=== PATIENT | female | born 1945 | race Two or more races ===

== ENCOUNTER 2017-10-13 10:29 | Emergency (ER) | payer OTHER ==
[~2017-10-13] VITALS: Ht 167.6 cm; Wt 108.9 kg
[2017-10-13] MEDS ORDERED: NORVASC10 MG (10:42)
[2017-10-13] MEDS ORDERED: COZAAR100 MG (10:42)
[2017-10-13] MEDS ORDERED: HYDRALAZINE HCL25 MG (10:43)
[2017-10-13] MEDS ORDERED: CARDURA XL4 MG (10:43)
== END 2017-10-13 12:32 | disposition home or self-care (01) ==
LOC: ER 10:29
DX: M62.830 Muscle spasm of back (principal); M54.5 Low back pain

== ENCOUNTER → 2021-07-27 | Emergency (ER) | payer OTHER ==
[~2021-07-27] VITALS: Ht 165.1 cm; Wt 127.0 kg
[~2021-07-27] MED LIST: CARDURA XL4 MG; COZAAR100 MG; HYDRALAZINE HCL25 MG; NORVASC10 MG
== END | disposition home or self-care (01) ==
LOC: ER 19:53
DX: S43.085A Other dislocation of left shoulder joint, initial encounter (principal); W18.39XA Other fall on same level, initial encounter; Y93.9 Activity, unspecified; Y92.018 Other place in single-family (private) house as the place of occurrence of the external cause; Y99.9 Unspecified external cause status

== ENCOUNTER 2023-07-05 14:01 | Emergency (ER) | payer OTHER ==
[~2023-07-05] VITALS: Ht 165.1 cm; Wt 113.9 kg
[2023-07-05] MEDS ORDERED: TOPROL XL200 MG (15:02)
[2023-07-05] MEDS ORDERED: TRAMADOL HCL50 MG (15:03)
[2023-07-05] MEDS ORDERED: PANTOPRAZOLE SODIUM 40 MG/VIAL VIAL IV PUSH ONE (16:30)
[2023-07-05 16:48] LABS: HEMATOCRIT 42.4 % (36.0-45.00); HEMOGLOBIN 13.8 g/dL (12.0-15.00); MEAN CELL VOLUME 86.1 fL (80.00-100.00); MEAN CORPUSCULAR HEMOGLOBIN 28.1 pg (27.00-32.0); MEAN CORPUSCULAR HGB CONC 32.6 g/dl (32.0-36.0); PLATELET COUNT 179 K/uL (150-450); RED BLOOD COUNT 4.93 M/uL (4.00-6.00); RED CELL DISTRIBUTION WIDTH 15.2 % (11.5-14.5)
[2023-07-05 17:16] LABS: ALBUMIN 3.5 gm/dL (3.4-5.0); BILIRUBIN TOTAL 1.04 mg/dL (0.3-1.2); CALCIUM 9.2 mg/dL (8.5-10.1); GFR 53.62; GLOBULINA 3.9 G/DL (2.4-3.5); POTASSIUM 3.22 mEq/L (3.5-5.1); TOTAL PROTEIN 7.4 gm/dL (6.4-8.2)
[2023-07-05 18:30] LABS: URINE APPEARANCE Turbid; URINE BILIRRUBIN Small (NEGATIVE); URINE BLOOD Large; URINE COLOR Dark Yellow; URINE LEUKOCYTE Large; URINE NITRATE Negative
[2023-07-05 18:40] LABS: URINE GLUCOSE 100 MG/DL (NEGATIVE); URINE PROTEIN 100 (NEGATIVE)
[2023-07-05 18:41] LABS: URINE BACTERIA 4413.6 uL (0.0-1933); URINE EPITHELIAL CELLS 72.3 uL (0.0-38.8); URINE RBC 36.2 uL (0.0-20.8); URINE WBC 1597.5 uL (0.0-23.2)
[2023-07-05] MEDS ORDERED: HYOSCYAMINE SULFATE 0.125 MG TAB.SUBL SL ONE (23:45)
[2023-07-05] MEDS ORDERED: PIPERACILLIN/TAZOBACTAM SODIUM 3.375 GM VIAL IV ONE (23:45)
== END 2023-07-06 01:57 | disposition home or self-care (01) ==
LOC: ER 14:01
PROVIDERS: General Practice
DX: K52.9 Noninfective gastroenteritis and colitis, unspecified (principal); K57.30 Diverticulosis of large intestine without perforation or abscess without bleeding; N20.0 Calculus of kidney; K62.5 Hemorrhage of anus and rectum; I10 Essential (primary) hypertension
CPT/HCPCS: 36415; 74176; 96365; 96366; 99284; J2543; J3490